=== PATIENT | male | born 1985 | race Two or more races ===

== ENCOUNTER 2022-03-05 04:33 | Emergency (ER) | payer OTHER ==
[~2022-03-05] VITALS: Ht 182.9 cm; Wt 146.3 kg
[2022-03-05] MEDS ORDERED: amLODIPine BESYLATE 5 MG TAB ONE (04:53)
[2022-03-05] MEDS ORDERED: HYDROcodone-ACET 5/325MG TAB PO ONE (05:00)
[2022-03-05] MEDS ORDERED: amLODIPine BESYLATE 5 MG TAB PO ONE (05:00)
[2022-03-05 05:01] LABS: Basophils # (auto) 0.1 10 ^3/uL (0-0.2); Basophils % (auto) 0.9 % (0.0-2.0); Eosinophils # (auto) 0.2 10 ^3/uL (0-0.8); Eosinophils % (auto) 2.6 % (0.0-7.0); Hematocrit 43.7 % (41.0-53.0); Hemoglobin 14.5 g/dL (13.5-17.5); Lymphocytes % (auto) 47.7 % (10.0-50.0); Mean Corpuscular Hemoglobin 28.7 pg (28.0-32.0); Mean Corpuscular Hgb Conc. 33.3 g/dL (32.0-36.0); Mean Corpuscular Volume 86.1 fL (80.0-100.0); Monocytes # (auto) 0.5 10 ^3/uL (0-1.3); Monocytes % (auto) 8.6 % (0.0-12.0); Neutrophils # (auto) 2.5 10 ^3/uL (1.6-8.6); Neutrophils % (auto) 40.2 % (37.0-80.0); Nucleated Red Blood Cells % 0.1 %; Red Blood Cells 5.07 10^6/uL (4.5-5.90); Red Cell Distribution Width 13.9 % (11.8-14.3); White Blood Cell 6.2 10^3/uL (4.4-10.8)
[2022-03-05 05:22] LABS: Calcium 8.4 mg/dL (8.5-10.1); Potassium 4.1 mmol/L (3.5-5.1)
[2022-03-05 05:25] LABS: BUN/Creatinine Ratio 20.6; Bilirubin, Total 0.4 mg/dL (0.2-1.0); Total Protein 7.2 g/dL (6.4-8.2)
[2022-03-05] MEDS ORDERED: LOSARTAN POTASSIUM 50 MG TAB PO ONE (07:15)
[2022-03-05 07:28] VITALS: BP 144/91
[2022-03-05] MEDS ORDERED: ATEN-60 PO (07:32)
[2022-03-05] MEDS ORDERED: OLME20TA53 PO (07:32)
== END 2022-03-05 07:56 | disposition home or self-care (01) ==
LOC: ER 04:33
DX: R07.89 Other chest pain (principal); I10 Essential (primary) hypertension
CPT/HCPCS: 36415; 71045; 80053; 84484; 85025; 93005